=== PATIENT | male | born 1960 | race American Indian/Alaskan Native ===

== ENCOUNTER → 2018-01-30 13:29 | Outpatient (REF) | payer OTHER, SELFPAY | LOC: LAB 13:29 | PROVIDERS: PCP Physician Assistant; Visit Provider Otolaryngology | DX: H60.391 Other infective otitis externa, right ear (principal) | CPT/HCPCS: 87070; 87205 ==

== ENCOUNTER → 2022-12-24 13:43 | Outpatient (CLI) | payer MEDICAID, OTHER, SELFPAY ==
--- NOTE | 2022-12-24 | DI.ECHO.S_ITS ---
[place] [facility]---------+ [facility] +---------+ : : [address] : : : : [id number] : : : : Phone: [phone]+ Echocardiogram Report + + :Name: REZA ROBB Study Date: 12/24/2022 Height: 71 in : [facility] ReadingLocation: Weight: 205 lb : : Gender: Male BSA: 2.1 m2 : :: 1960 Age: 62 yrs BP: 115/71 mmHg: :Reason For Study: Chronic Systolic Heart Failure : :Ordering Physician: MIKA, : :LM Performed By: Sidra Lyons : :Referring: LM BRENNAN : + + Interpretation Summary The left ventricle is grossly normal size. Apical hypertrophy present Trabeculae near apex are visualized. No thrombus is observed. Deep trabecular recess. The ejection fraction is estimated to be 45-50%. There is septal wall hypokinesis. Diastolic parameters suggest a relaxation abnormality of the left ventricle, consistent with probable normal filling pressures. The right ventricle is mildly dilated. Right ventricular systolic function is at the lower limits of normal. There is a pacemaker lead in the right ventricle. No significant valvular pathology seen. The IVC is of normal diameter and collapses greater than 50% with a sniff. This suggests a low right atrial pressure of 3 mm Hg. Procedure: A two-dimensional transthoracic echocardiogram with color flow and Doppler was performed. The study quality was technically adequate. There is no prior echocardiogram noted for this patient. The patient was in normal sinus rhythm during the exam. Left Ventricle: The left ventricle is grossly normal size. Proximal septal thickening is noted. There is no echo evidence for significant left ventricular outflow tract obstruction. Trabeculae near apex are visualized. No thrombus is observed. The ejection fraction is estimated to be 45-50%. Apical hypertrophy present. There is septal wall hypokinesis. Diastolic parameters suggest a relaxation abnormality of the left ventricle, consistent with probable normal filling pressures. Right Ventricle: The right ventricle is mildly dilated. There is a pacemaker lead in the right ventricle. Right ventricular systolic function is at the lower limits of normal. Atria: The left atrial size is normal. Right atrial size is normal. There is no Doppler evidence for an interatrial shunt. Mitral Valve: The mitral valve leaflets are slightly calcified. There is no mitral valve stenosis. There is trace mitral regurgitation. Aortic Valve: The aortic valve is not well visualized. There is no aortic valve stenosis. No aortic regurgitation is present. Tricuspid Valve: The tricuspid valve is normal. There is no tricuspid stenosis. There is mild tricuspid regurgitation. The right ventricular systolic pressure is estimated to be at least 32 mmHg based on an estimated right atrial pressure of 3 mm Hg. Pulmonic Valve: The pulmonic valve leaflets are thin and pliable; valve motion is normal. There is no pulmonic valvular stenosis. There is trace pulmonic regurgitation. Great Vessels: The aortic root is normal size. The ascending aorta is normal in size. The pulmonary artery is normal size. The IVC is of normal diameter and collapses greater than 50% with a sniff. This suggests a low right atrial pressure of 3 mm Hg. Pericardium/ Pleura There is no pericardial effusion. There is no pleural effusion. MMode/2D Measurements & Calculations LVIDd: 4.7 cm LVOT diam: 2.4 cm LVIDs: 3.2 cm Ao root diam: 3.7 cm FS: 31.9 % asc Aorta Diam: 3.4 cm IVSd: 0.90 cm LVPWd: 1.3 cm LV colon. diameter/BSA (cm/m^2): 2.2 LV sys. diameter/BSA (cm/m^2): 1.5 LA A2 area: 17.9 cm2 RA long axis: 6.2 cm LA A4 area: 21.1 cm2 RA area: 18.8 cm2 LA length (vol): 5.9 cm RA vol: 48.4 ml LA vol: 54.0 ml RA : 22.7 ml/m2 LA vol index: 25.3 ml/m2 RVD1 (basal): 4.3 cm LVLs ap4: 5.6 cm LVLd ap2: 5.6 cm TAPSE_phl: 1.7 cm LVLs ap2: 4.8 cm Doppler Measurements & Calculations Ao V2 max: 157.0 cm/sec LVOT Max Jagdish: 96.6 cm/sec Ao V2 mean: 101.0 cm/sec LV V1 max P.7 mmHg Ao max P.0 mmHg LV V1 VTI: 17.7 cm Ao mean P.0 mmHg VALERIANO(I,D): 2.8 cm2 Ao V2 VTI: 28.2 cm VALERIANO(V,D): 2.8 cm2 sev ratio: 0.63 VALREIANO indexed to BSA (cm^2/m^2): 1.3 MV E max jagdish: 48.4 cm/sec TR max jagdish: 257.0 cm/sec MV A max jagdish: 80.1 cm/sec TR max P.5 mmHg MV E/A: 0.60 PA V2 max: 105.0 cm/sec Med Peak E' Jagdish: 4.2 cm/sec PA V2 mean: 76.2 cm/sec E/E' med: 11.6 PA mean P.0 mmHg Lat Peak E' Jagdish: 12.3 cm/sec PA pr(Accel): 42.1 mmHg E/E' lat: 3.9 E/e' average: 7.8 MV dec time: 0.38 sec SV(LVOT): 80.1 ml AV VR_phl: 0.62 VALERIANO(VTI)/BSA_phl: 1.3 MV P1/2t-pr_phl: 110.0 msec Reading Physician:05:18 PM
== END ==
PROVIDERS: PCP Family Medicine; Referring Provider Internal Medicine Cardiovascular Disease; Visit Provider Internal Medicine Cardiovascular Disease
DX: I50.22 Chronic systolic (congestive) heart failure (principal); I07.1 Rheumatic tricuspid insufficiency
CPT/HCPCS: 93306

== ENCOUNTER → 2024-04-09 06:55 | Outpatient (CLI) | payer OTHER, SELFPAY ==
--- NOTE | 2024-04-09 06:57 | DI.US.S_ITS ---
PROCEDURE: US ARTERIAL DUPLEX LE BI INDICATIONS: BILATERAL NON-PRESSURE ULCERS TECHNIQUE: Color and pulse Doppler interrogation was performed of both lower extremity arterial systems, with image documentation. COMPARISON: None. FINDINGS: Right lower extremity: Common femoral artery: 98 cm/sec, with triphasic flow. Deep femoral artery: 56 cm/sec, with triphasic flow. Proximal superficial femoral artery: 71 cm/sec, with triphasic flow. Mid superficial femoral artery: 79 cm/sec, with triphasic flow. Distal superficial femoral artery: 82 cm/sec, with triphasic flow. Popliteal artery: 56 cm/sec, with triphasic flow. Posterior tibial artery: 46 cm/sec, with triphasic flow. Anterior tibial artery/dorsalis pedis: 72 cm/sec, with monophasic flow. Jung-scale imaging description: Mild degree of plaque throughout the SFA and popliteal artery. Moderate degree of diffuse calcified plaque throughout the tibial arteries. Left lower extremity: Common femoral artery: 68 cm/sec, with triphasic flow. Deep femoral artery: 58 cm/sec, with triphasic flow. Proximal superficial femoral artery: 108 cm/sec, with triphasic flow. Mid superficial femoral artery: 107 cm/sec, with triphasic flow. Distal superficial femoral artery: 86 cm/sec, with triphasic flow. Popliteal artery: 67 cm/sec, with triphasic flow. Posterior tibial artery: 95 cm/sec, with monophasic flow. Anterior tibial artery/dorsalis pedis: 14 cm/sec, with monophasic flow. Jung-scale imaging description: Minimal degree of plaque throughout the left SFA and popliteal arteries. Moderate to severe diffuse calcified plaque throughout the tibial arteries. IMPRESSION: 1. Diminished velocities of the left anterior tibial artery with change in waveforms of left anterior and posterior tibial artery suggestive of diffuse disease. 2. Change in waveform of the right anterior tibial artery suggestive of diffuse disease. 3. No hemodynamically significant stenosis involving bilateral SFA and popliteal arteries. Dictated by: William Vidal M.D. on 04/09/2024 at 16:28 Approved by: William Vidal M.D. on 04/09/2024 at 16:34
== END ==
PROVIDERS: PCP Family Medicine; Referring Provider Family Medicine; Visit Provider Family Medicine
DX: L97.929 Non-pressure chronic ulcer of unspecified part of left lower leg with unspecified severity (principal); L97.919 Non-pressure chronic ulcer of unspecified part of right lower leg with unspecified severity
CPT/HCPCS: 93925

== ENCOUNTER → 2024-05-27 09:48 | Outpatient (CLI) | payer OTHER, SELFPAY ==
--- NOTE | 2024-05-27 09:51 | DI.US.S_ITS ---
PROCEDURE: US PERIPH VENOUS LOW EXTREM LT INDICATIONS: PAIN AND EDEMA OF left lower extremity TECHNIQUE: Real-time imaging, as well as color and pulse Doppler interrogation, were performed of the lower extremity deep veins from the inguinal ligament to the popliteal fossa, with documentation of the visualized calf veins. Thirteen images. COMPARISON: None. FINDINGS: The common femoral, femoral, popliteal, and the visualized calf veins are normally compressible, and free of intraluminal thrombus. Color and pulse Doppler demonstrate normal phasic intraluminal flow. There is normal augmentation response to distal compression maneuver. IMPRESSION: No ultrasound evidence of deep vein thrombosis left lower extremity. Dictated by: Navdeep Sanchez M.D. on 05/27/2024 at 10:28 Approved by: Navdeep Sanchez M.D. on 05/27/2024 at 10:30
== END ==
PROVIDERS: PCP Family Medicine; Referring Provider Nurse Practitioner Family; Visit Provider Nurse Practitioner Family
DX: R60.0 Localized edema (principal); M79.605 Pain in left leg
CPT/HCPCS: 93971

== ENCOUNTER → 2024-09-03 06:34 | Outpatient (CLI) | payer OTHER, SELFPAY ==
--- NOTE | 2024-09-03 06:37 | DI.US.S_ITS ---
PROCEDURE: US ABD AORTA ANEURYSM SCREEN INDICATIONS: PERSONAL HISTORY TOBACCO USE TECHNIQUE: Real time scanning was performed of the aorta and iliac arteries, with image documentation. COMPARISON: None. FINDINGS: Aorta: Proximal aortic diameter measures 2.5 cm. Mid-aorta is not well seen. Distal aortic diameter is 1.8 cm. Iliac arteries: Right common iliac artery measures 1.2 cm. Left common iliac artery measures 1.2 cm. IMPRESSION: No visualized aneurysmal dilation although portions are not well evaluated. Dictated by: Jessica Feng M.D. on 09/03/2024 at 16:11 Approved by: Jessica Feng M.D. on 09/03/2024 at 16:12
== END ==
PROVIDERS: PCP Family Medicine; Referring Provider Family Medicine; Visit Provider Family Medicine
DX: Z13.6 Encounter for screening for cardiovascular disorders (principal); Z87.891 Personal history of nicotine dependence
CPT/HCPCS: 76706